=== PATIENT | male | born 1990 | race Caucasian/White ===

== ENCOUNTER 2018-04-08 19:48 | Emergency (ER) | payer MEDICAID ==
[~2018-04-08] VITALS: Ht 182.9 cm; Wt 72.6 kg
[2018-04-08] MEDS ORDERED: Morphine Sulfate 2mg/ml Inj IM ONE ×2 (20:00→22:30)
[2018-04-08] MEDS ORDERED: Tetanus/Diptheria/Pertussis Vaccine 0.5ml Syr IM ONE (20:00)
[2018-04-08 20:02] VITALS: BP 130/100
[2018-04-08] MEDS ORDERED: Hydrogen Peroxide 473ml Bottle TOPIC ONE (21:03)
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
[2018-04-08] MEDS ORDERED: AUGMENTIN 875-1 EAC1 ORAL (22:21)
[2018-04-08] MEDS ORDERED: NEXAFED30 MG ORAL (22:21)
[2018-04-08] MEDS ORDERED: IBUPROFEN600 MG ORAL (22:21)
[2018-04-08] MEDS ORDERED: NORCO 5-325 TA1 EACH ORAL (22:21)
[2018-04-08 22:36] VITALS: BP 131/78
[2018-04-08 22:59] VITALS: BP 131/78
--- NOTE | 2018-04-09 09:32 | Diagnostic Imaging Report ---
Indication: Trauma and facial pain. The facial/nasal fractures Technique: Continuous helical transaxial imaging of the maxillofacial structures obtained without intravenous contrast administration. Coronal 2-D reformats were also obtained. Study obtained in a Siemens sensation [address] Automatic Exposure Control was utilized. Total Dose length Product (DLP): [address] Dose Index Volume (CTDIvol): 0.15, 70.38, 28.19 mGy Comparison: None Findings: There is acute comminuted fracture of the nasal bone. There is also fracture of the left frontal process of the maxilla. There is a fracture of the nasal septum is well anteriorly. The nasal bone is shifted toward the right. There is edema within the nasal cavity. There is a prominent right dwayne bullosa. There is no obvious nasal hematoma. Mild mucosal thickening within the ethmoid sinus and within the maxillary sinus demonstrated. Soft tissue swelling and some soft tissue air noted over the nasal bone indicative of a contusion laceration injury. Some facial soft tissue swelling is present as well anteriorly. No additional fractures are identified. The orbits appear normal bilaterally. Pterygoid plates zygoma visualized mandible and other osseous structures are unremarkable. Mastoids are clear bilaterally. IMPRESSION: Acute comminuted nasal fracture as described above. Sinusitis. [facility] has communicated the preliminary results to the Emergency Department. Their findings are largely concordant with this report. The CT scanner at [facility] is accredited by the [employer] and the scans are performed using dose optimization techniques as appropriate to a performed exam including Automatic Exposure control.
--- NOTE | 2018-04-09 10:09 | Diagnostic Imaging Report ---
Indication: Headache. Facial head trauma Technique: Contiguous 5 mm thick transaxial imaging of the head obtained in a Siemens Sensation [address] scanner. Soft tissue and bone windows generated. Automatic Exposure Control was utilized. Total Dose length Product (DLP): 1990.[address] Dose Index Volume (CTDIvol): 70.38,28.19 mGy Comparison: none Findings: The size and configuration of the cortical sulci, basal cisterns, and ventricles are within normal limits for age. There is no mass effect, midline shift, or edema identified. There is no evidence of acute hemorrhage or abnormal intra-axial or extra-axial fluid collections. There is a nasal fracture. Please refer to the maxillofacial CT report. Soft tissue swelling also noted over the nose. Impression: No mass effect, edema or acute bleed. Nasal fracture [facility] has communicated the preliminary results to the Emergency Department. Their findings are largely concordant with this report. The CT scanner at [facility] is accredited by the [employer] and the scans are performed using dose optimization techniques as appropriate to a performed exam including Automatic Exposure control.
== END 2018-04-08 23:00 | disposition home or self-care (01) ==
LOC: EDBD 19:48 → EMR 20:19
DX: S02.2XXA Fracture of nasal bones, initial encounter for closed fracture (principal); S01.21XA Laceration without foreign body of nose, initial encounter; Y00.XXXA Assault by blunt object, initial encounter; Y93.9 Activity, unspecified; Y92.89 Other specified places as the place of occurrence of the external cause; Z23 Encounter for immunization
CPT/HCPCS: 70450; 70486; 90471; 90715; 96372; 99284; J2270

== ENCOUNTER 2019-12-02 13:13 | Emergency (ER) | payer MEDICAID ==
[~2019-12-02] VITALS: Ht 182.9 cm; Wt 72.6 kg
[~2019-12-02 13:13] MED LIST: AUGMENTIN 875-1 EAC1 ORAL; IBUPROFEN600 MG ORAL; NEXAFED30 MG ORAL; NORCO 5-325 TA1 EACH ORAL
--- NOTE | 2019-12-02 13:56 | Emergency Room Report ---
History of Present Illness General Chief Complaint: Skin Rash/Abscess Source: Patient Present Illness HPI 29-year-old male with no significant past medical history here complaining of pruritic rash all over body including perianal and reporting that sometimes he sees pus drainage from some sites of rash. Denies any fever or chills. Denies coming contact with any allergens. Has not taken medication for symptom relief. Denies cough and congestion, shortness of breath. Denies any constipation, bloody stool, no pus drainage noted from the macular lesion all over body. Denies use of any drugs. Denies any penile discharge, dysuria, no other associated symptoms. Denies nausea vomiting abdominal pain. Peers to be anxious and on the possible influence of unknown stimulant. Allergies: Coded Allergies: No Known Allergies (Unverified , 04/08/18) COVID-19 Screening Contact w/high risk pt: No Recent Travel to affected area: No Experienced COVID-19 symptoms?: No COVID-19 Testing performed INSURANCE APPRAISER: No Patient History Past Medical History: see triage record Past Surgical History: none Pertinent Family History: none Immunizations: UTD Reviewed Nursing Documentation: PMH: Agreed; PSxH: Agreed Nursing Documentation-PMH Past Medical History: No Stated History Hx Cancer: Yes Review of Systems All Other Systems: negative except mentioned in HPI Physical Exam Vital Signs Date Time Temp Pulse Resp B/P (MAP) Pulse Ox O2 Delivery O2 Flow Rate FiO2 12/02/19 13:24 98.4 108 17 186/84 (118) 98 Room Air Sp02 EP Interpretation: reviewed, normal General Appearance: no apparent distress, alert, GCS 15, non-toxic Head: normocephalic, atraumatic Eyes: bilateral eye normal inspection, bilateral eye PERRL ENT: hearing grossly normal, normal pharynx, no angioedema, normal voice Neck: full range of motion, supple/symm/no masses Respiratory: chest non-tender, lungs clear, normal breath sounds, no rhonchi, no respiratory distress, no retraction, speaking full sentences Cardiovascular #1: regular rate, rhythm, no edema, no murmur Gastrointestinal: normal bowel sounds, non tender, soft, non-distended, no guarding, no rebound Rectal: deferred Genitourinary: no CVA tenderness Musculoskeletal: back normal Neurologic: alert, motor strength/tone normal, oriented x3, sensory intact, responsive, speech normal Psychiatric: judgement/insight normal, memory normal, mood/affect normal, no suicidal/homicidal ideation Skin: rash - Macular rash-like with ezio like presentation all over body including perianal without any pus drainage Lymphatic: no adenopathy Medical Decision Making PA Attestation All my diagnosis and treatment plans were reviewed ad discussed with my supervising physician Dr. Valderrama Diagnostic Impression: Primary Impression: Cellulitis Additional Impression: Scabies ER Course 29-year-old male with no significant past medical history here complaining of pruritic rash all over body including perianal and reporting that sometimes he sees pus drainage from some sites of rash. Denies any fever or chills. Denies coming contact with any allergens. Has not taken medication for symptom relief. Denies cough and congestion, shortness of breath. Denies any constipation, bloody stool, no pus drainage noted from the macular lesion all over body. Denies use of any drugs. Denies any penile discharge, dysuria, no other associated symptoms. Denies nausea vomiting abdominal pain. Peers to be anxious and on the possible influence of unknown stimulant. Ddx considered but are not limited to: Eczema, scabies, lice, Vital signs: are WNL, pt. is afebrile H&PE are most consistent with: Scabies, cellulitis due to pruritus ORDERS: Permethrin, Keflex ED INTERVENTIONS: None required at this time. DISCHARGE: At this time pt. is stable for d/c to home. Will provide printed patient care instructions, and any necessary prescriptions. Care plan and follow up instructions have been discussed with the patient prior to discharge. Patient take medication as directed, follow primary doctor and race car mechanic, if worsening symptoms return to the emergency room. Also wash all clothes and bedding. Patient was evaluated in the context of the global COVID-19 pandemic, which necessitated consideration that the patient might be at risk for infection with the SARS-COV-2 virus that causes COVID-19. Institutional protocols and algorithms that pertain to the evaluation of patients at risk for COVID-19 are in a state of rapid change based on information relieved by multiple regulatory bodies including the CDC and the federal and state organizations. These policies and algorithms were followed during the patient's care in the ED. Last Vital Signs Date Time Temp Pulse Resp B/P (MAP) Pulse Ox O2 Delivery O2 Flow Rate FiO2 12/02/19 13:24 98.4 108 17 186/84 (118 98 Room Air Disposition: HOME, SELF-CARE Condition: Stable Scripts Permethrin* (ELIMITE*) 60 Gm Cream..g. 1 APPLIC TOPIC ONCE, #60 GM 0 Refills Apply cream from head to toe; leave on for 8-14 hours before washing off with water; may reapply in 1 week if live mites appear. Prov: Duong Crocker 12/02/19 Cephalexin* (KEFLEX*) 500 Mg Tablet 500 MG ORAL EVERY 6 HOURS for 7 Days, #28 CAP Prov: Duong Crocker 12/02/19 Patient Instructions: Cellulitis, [id number], Scabies, Pediatric Additional Instructions: Wash all clothes, wear loose clothing, take medication as directed, if worsening symptoms return to the emergency room. Follow-up with your primary doctor. Duong Crocker Dec 02, 2019 13:56
[2019-12-02] MEDS ORDERED: CEPHALEXIN500 M1 ORAL (13:57)
[2019-12-02] MEDS ORDERED: PERMETHRIN60 GM TOPIC (13:57)
--- NOTE | 2019-12-02 14:05 | NUR ---
ED Nurse Note: Pt cleared by health care Provider for discharge. DC instructions/prescription was given and explained to pt and verbalized understanding of teachings. All medical deviecs such as ID band removed. Pt is AAO x4, ambulatory and left with all personal belongings.
[2019-12-02 14:27] VITALS: BP 186/84
== END 2019-12-02 14:05 | disposition home or self-care (01) ==
LOC: EMR 13:40
DX: L03.90 Cellulitis, unspecified (principal); B86 Scabies; Z85.9 Personal history of malignant neoplasm, unspecified
CPT/HCPCS: 99282

== ENCOUNTER 2020-01-15 12:21 | Emergency (ER) | payer MEDICAID ==
[~2020-01-15] VITALS: Ht 183.5 cm; Wt 72.6 kg
[~2020-01-15 12:21] MED LIST changes: +CEPHALEXIN500 M1 ORAL; +PERMETHRIN60 GM TOPIC
[2020-01-15] MEDS ORDERED: PERMETHRIN60 GM TOPIC (12:50)
[2020-01-15] MEDS ORDERED: BACTRIM DS TAB1 EAC1 ORAL (12:50)
--- NOTE | 2020-01-15 12:55 | Emergency Room Report ---
History of Present Illness General Chief Complaint: Skin Rash/Abscess Source: Patient Present Illness HPI Disclaimer: Please note that this report is being documented using DRAGON technology. This can lead to erroneous entry secondary to incorrect interpretation by the dictating instrument. HPI: 29-year-old male presents for evaluation of skin rash. Patient states he has multiple small abscesses over his arms and legs that he has been popping over the past month. He was seen in the emergency department similar complaints prescribed permethrin cream and Keflex which he states helped briefly. States this started when [place] was [address] and has not gone away. Denies fever, chills, nausea, vomiting. Denies injecting medications or illicit drugs. Has not yet followed up with PMD or dermatology. PMH: Reviewed PSH: Reviewed Allergies: Reviewed Social Hx: Reviewed Allergies: Coded Allergies: No Known Allergies (Unverified , 04/08/18) COVID-19 Screening Contact w/high risk pt: No Recent Travel to affected area: No Experienced COVID-19 symptoms?: No COVID-19 Testing performed SCHOOL PSYCHOLOGICAL EXAMINER: No Nursing Documentation-PMH Past Medical History: No Stated History Hx Cancer: Yes Review of Systems All Other Systems: negative except mentioned in HPI Physical Exam Vital Signs Date Time Temp Pulse Resp B/P (MAP) Pulse Ox O2 Delivery O2 Flow Rate FiO2 01/15/20 12:31 98.2 107 20 95 Room Air General: Awake and alert, no acute distress HEENT: NC/AT. EOMI. Resp: Normal work of breathing Skin: Multiple round flat erythematous regions over the lower and upper extremities. Region over the left patella somewhat tender to palpation erythematous and slightly warm but no fluctuance. No palpable deep space infections. No active drainage. Multiple excoriation burger over the body. None in a linear tract. No findings in the finger webbing's. Nikolsky negative. MSK: Normal tone and bulk. Moving all extremities. No obvious deformity. Neuro: Awake and alert. Mentating appropriately Medical Decision Making Diagnostic Impression: Primary Impression: Rash and other nonspecific skin eruption ER Course Is a 29-year-old male presenting for evaluation of skin rash. Differential includes was not limited to folliculitis, cellulitis, abscess, insect bite, lice , scabies to name a few. There are no palpable drainable abscesses and patient' s multiple wounds are different stages of healing consistent with his picking behavior. He denies injecting any IV drugs or medications. Patient does appear to have a superficial cellulitis over the left knee over recently popped pustule. No evidence of infection into the joint space itself. Will start Bactrim and at patient request refill of the permethrin cream as he states it helped last time. I strongly encouraged him to follow-up with dermatology and his PMD which he has not seen in some time. We discussed reasons to return to the ED. He is stable for outpatient follow-up. Last Vital Signs Date Time Temp Pulse Resp B/P (MAP) Pulse Ox O2 Delivery O2 Flow Rate FiO2 01/15/20 12:31 98.2 107 20 95 Room Air Disposition: HOME, SELF-CARE Condition: Stable Scripts Trimethoprim/Sulfamethoxazole 160/800* (BACTRIM DS TABLET*) 1 Each Tablet 1 TAB ORAL Q12H, #14 TAB 0 Refills Prov: Cristobal Todd MD 01/15/20 Permethrin* (ELIMITE*) 60 Gm Cream..g. 1 APPLIC TOPIC ONCE, #60 GM 0 Refills Apply cream from head to toe; leave on for 8-14 hours before washing off with water; may reapply in 1 week if live mites appear. Prov: Cristobal Todd MD 01/15/20 Referrals: [facility] Felisa Mcfarland [facility]. [facility] Patient Instructions: Abscess Additional Instructions: Please follow-up with your primary care doctor in the next 1 to 3 days to discuss this emergency department visit and for reevaluation. Ask for referral to dermatology to discuss recurrent skin infections. If you have any new or worsening symptoms please return to the emergency department for reevaluation. Please note that this report is being documented using Lucky Pai technology. This can lead to erroneous entry secondary to incorrect interpretation by the dictating instrument. Cristobal Todd MD Jan 15, 2020 12:55
== END 2020-01-15 12:55 | disposition home or self-care (01) ==
LOC: EMR 12:50
DX: R21 Rash and other nonspecific skin eruption (principal); Z85.9 Personal history of malignant neoplasm, unspecified
CPT/HCPCS: 99282